=== PATIENT | female | born 1995 | race Two or more races ===

== ENCOUNTER 2018-09-18 23:26 | Emergency (ER) | payer OTHER ==
[~2018-09-18] VITALS: Ht 152.4 cm; Wt 47.6 kg
[2018-09-18] MEDS ORDERED: LANTUS SOL100 UNIT/1 (23:34)
[2018-09-18] MEDS ORDERED: HUMALOG100 UNIT/1 (23:34)
== END 2018-09-19 07:51 | disposition home or self-care (01) ==
LOC: ER 23:26
DX: O20.0 Threatened abortion (principal)

== ENCOUNTER 2018-10-24 01:23 | Emergency (ER) | payer OTHER ==
[~2018-10-24] VITALS: Ht 162.6 cm; Wt 46.3 kg
[~2018-10-24 01:23] MED LIST: HUMALOG100 UNIT/1; LANTUS SOL100 UNIT/1
== END 2018-10-24 21:59 | disposition home or self-care (01) ==
LOC: ER 01:23
DX: O46.8X2 Other antepartum hemorrhage, second trimester (principal); O21.0 Mild hyperemesis gravidarum